=== PATIENT | male | born 1940 | race Caucasian/White ===

== ENCOUNTER 2019-03-19 06:58 | Outpatient (CLI) | payer MEDICARE, BC ==
[~2019-03-19] VITALS: Ht 182.9 cm; Wt 97.0 kg
[2019-03-19] VITALS (15 sets, daily range): BP systolic 133–151; BP diastolic 76–94; PULSE 60–65; TEMP 97.6
[~2019-03-19 06:58] MED LIST: ASPIRIN 81M81 MG/TA2 PO; COZAAR 25MG25 MG/TAB PO; COZAAR 50MG50 MG/TAB PO; COZAAR100 MG PO; HCTZ12.5TAB PO; HYTRIN5 MG PO; LIPITOR 80MG80 MG PO; NORVASC 5MG5 MG/TAB PO; PROZAC 20MG20 MG PO; SARAFEM20 M1 PO; SINEMET 25/101 UDTAB PO; TRELEGY ELLIPT1 EACH IH; ZANAFLEX CAPSULE4 MG PO; ZOCOR 40MG40 MG PO
--- NOTE | 2019-03-19 08:00 | NUR ---
pt to ct per ambulation. Pt positioned prone on table. Monitors applied and O2 on at 2l/nc.
--- NOTE | 2019-03-19 08:07 | NUR ---
Dr Clancy talks with pt regarding procedure and explains risks of procedure.
--- NOTE | 2019-03-19 08:33 | NUR ---
Specimens obtaine by Dr Clancy and placed in formalin. Specimen labeled.
--- NOTE | 2019-03-19 08:45 | NUR ---
Transferred by cart from Radiology. VSS.
--- NOTE | 2019-03-19 08:45 | NUR ---
Pt transport to [facility] per cart. Report to Alice CARDENAS, care assumed. Informed of needed chest xray in 1 hour. Bandaid to site clean dry and intact.
--- NOTE | 2019-03-19 10:17 | NUR ---
Ok with Dr. Clancy to discharge home. INT discontinued intact. Discharge instructions given. Transferred to private car by david
== END 2019-03-19 10:20 | disposition home or self-care (01) ==
LOC: COL.RAD 06:58
DX: J44.9 Chronic obstructive pulmonary disease, unspecified (principal); R91.8 Other nonspecific abnormal finding of lung field; F17.210 Nicotine dependence, cigarettes, uncomplicated

== ENCOUNTER → 2024-05-06 | Outpatient (CLI) | payer MEDICARE, BC ==
[~2024-05-06] MED LIST changes: +Albuterol 0.083% Neb Soln 2.5 MG/3 ML UD IH ONE
[2024-05-06 10:05] LABS: ARTERIAL BLD GAS O2 SATURATION 96.7 % (92-100); ARTERIAL BLD GAS TCO2 CT 25.9; ARTERIAL BLOOD GAS BASE EXCESS 0.7 (-2-2); ARTERIAL BLOOD GAS HCO3 24.8 meq/L (22-26); ARTERIAL BLOOD GAS PCO2 37.9 mmHg (35-45); ARTERIAL BLOOD GAS PO2 93.2 mmHg (80-100); ARTERIAL BLOOD GAS pH 7.43 (7.35-7.45)
== END ==
LOC: COL.PUL 09:53
PROVIDERS: Internal Medicine Pulmonary Disease
DX: I51.7 Cardiomegaly (principal); I34.0 Nonrheumatic mitral (valve) insufficiency; J44.9 Chronic obstructive pulmonary disease, unspecified